=== PATIENT | female | born 2005 | race Caucasian/White ===

== ENCOUNTER 2025-03-22 04:55 | Day surgery (SDC) | payer OTHER, SELFPAY ==
[2025-03-21 23:37] VITALS: BP 130/83
[2025-03-22] VITALS (12 sets, daily range): BP systolic 95–125; BP diastolic 51–79; BMI 23.0; BMI 23.7
[2025-03-22] MEDS: OMNIPAQUE 50 ML PO (00:52)
[2025-03-22] MEDS: NSS 1000 IV ×2 (00:53→06:09)
[2025-03-22] MEDS: ZOFRAN 4 MG IV (00:53)
[2025-03-22 01:05] LABS: Hematocrit 36.2 % (37.0-47.0); Hemoglobin 12.7 g/dL (12.0-16.0); Mean Corp Hgb Conc. 35.1 g/dL (33.0-37.0); Mean Corpuscular Hgb 30.6 pg (27.0-31.0); Mean Corpuscular Volume 87.2 fL (81.0-99.0); Mean Platelet Volume 10.8 fL (7.4-10.4); Platelet Count 267 10^3/uL (130-400); Red Blood Cell Count 4.15 10^6/uL (4.20-5.40); Red Cell Dist. Width 13.4 % (11.5-14.5); White Blood Cell Count 10.1 10^3/uL (4.8-10.8)
[2025-03-22 01:08] LABS: Urine Albumin 1+ (Neg - Trace); Urine Bilirubin Negative (Negative); Urine Character Clear (Clear); Urine Color Yellow; Urine Glucose Negative (Negative); Urine Ketone Negative (Negative); Urine Leukocyte Negative (Negative); Urine Nitrite Negative (Negative); Urine Occult Blood 1+ (Negative); Urine Urobilinogen Negative (Neg - 1+)
[2025-03-22 01:15] LABS: HCG, Serum Qualitative Screen Negative; Urine Squamous Cell >30 /LPF (Few)
[2025-03-22 01:17] LABS: Urine Bacteria Few (Negative); Urine White Cell None Seen /HPF (0-5)
[2025-03-22 01:21] LABS: ALT (SGPT) 10 U/L (0-35); AST (SGOT) 22 U/L (14-36); Albumin 4.7 g/dl (3.5-5.0); Alkaline Phosphatase 39 U/L (38-126); Blood Urea Nitrogen 12 mg/dl (7-17); Calcium 9.4 mg/dl (8.4-10.2); Carbon Dioxide 24 mmol/L (22-30); Chloride 111 mmol/L (98-107); Estimated Creatinine Clearance 81 ml/min; Glucose 77 mg/dl (70-99); Potassium 3.6 mmol/L (3.5-5.1); Sodium 143 mmol/L (135-145); Total Bilirubin 0.7 mg/dl (0.2-1.3); Total Protein 7.2 g/dl (6.3-8.2); eGFR > 60.00
[2025-03-22 01:28] LABS: Lipase 102 U/L (23-300)
--- NOTE | 2025-03-22 02:49 | ED.GENMED ---
History of Present Illness
General
Chief Complaint: Abdominal Pain
Source: patient and family
Time Seen by Provider: 03/22/25 00:18
History of Present Illness
History of Present Illness:
19-year-old female presents with right abdominal pain that started this morning around 9 AM. The patient states she cannot get comfortable. She states the pain is worse whenever she tries to lay or sit. She states the pain still does persist when
she stands. The pain is in the right mid abdomen. Triage note noted but the pain is more in the mid to lower abdomen on the right. She admits to nausea. No vomiting or diarrhea. No fevers. No dysuria. No constipation. No diarrhea. No
melena. No hematochezia. Last period was on the . No abnormal vaginal bleeding. No abnormal vaginal discharge. Patient states she did see the PCP who gave her Zofran and advised that she got worse to come to the house. Mom states she
typically handles pain well but has been in pain all day
Past History
Past History
ED Past Medical History: Asthma
ED Past Surgical History: Tonsilectomy
Phy Exam
Physical Exam
Physical Exam:
CONSTITUTIONAL Patient alert and oriented to person, place and time. Well-appearing. Vital signs reviewed.
HEAD atraumatic, normocephalic.
EYES eyelids normal to inspection, Extraocular muscles intact, Conjunctiva normal, Sclera normal.
NECK normal range of motion, Trachea midline, no jugular venous distention.
RESPIRATORY CHEST No respiratory distress noted, Chest expansion equal, Bilateral breath sounds clear.
CARDIOVASCULAR regular rate and rhythm, Heart sounds normal.
ABDOMEN moderate right lower quadrant abdominal tenderness, mild suprapubic tenderness, Bowel sounds normal. No distention.
BACK normal inspection, no obvious deformities, no CVA tenderness
UPPER EXTREMITY range of motion normal, Motor strength normal, no cyanosis, no edema.
LOWER EXTREMITY range of motion normal, Motor strength normal, no cyanosis, no edema.
NEURO Speech normal, No focal motor deficits, Antonia coma scale 15, Memory normal, Cranial Nerves intact to screening exam.
SKIN skin warm, dry, and normal in color.
Course
Orders/Labs/Results
Orders:
Orders
03/21/25 23:45
Comprehensive Metabolic Panel Urgent
HCG, Serum Qualitative Screen Urgent
Lipase Urgent
Urinalysis Reflex To Culture Urgent
Date Specimen was Collected: 03/21/25
Time Specimen was Collected: 23:47
03/21/25 23:47
Test Result ONCE
03/22/25 00:36
CT Abd/pel W Iv And Oral Contr Urgent
Comment:
Reason For Exam: RLQ abd pain
Iohexol [Omnipaque] See Protocol PO NOW STA
03/22/25 00:37
0.9% Sodium Chloride 1000 ml [Nss] 1,000 ml IV BOLUS
Ondansetron Injectable [Zofran] 4 mg IV NOW STA
03/22/25 00:47
Complete Blood Count/With Diff Urgent
Comment: ADD ON
Urine Microscopic Reflex Cult Urgent
03/22/25 03:34
Add On- LAB Urgent
Tests Added?: differential on CBC
03/22/25 03:51
CefTRIAXone [Rocephin] 2,000 mg IV NOW STA
MetroNIDAZOLE 500 MG/100 ML [Flagyl 500 mg] 100 ml IV NOW
Abnormal Lab Results
03/22/25
00:47
RBC 4.15 L 10^6/uL
(4.20-5.40)
Hct 36.2 L %
(37.0-47.0)
MPV 10.8 H fL
(7.4-10.4)
Chloride 111 H mmol/L
(98-107)
Ur Occult Blood Reflex 1+ A
(Negative)
Urine RBC 3-6 A /HPF
(0-2)
Urine Bacteria (Reflex) Few A
(Negative)
Urine Albumin (Reflex) 1+ A
(Neg - Trace)
03/22/25 00:47
03/22/25 00:47
Vital Signs
Initial and Last Documented VS:
Initial Vital Signs
Temp Pulse Resp BP Pulse Ox
98.6 F 108 16 130/83 100
03/21/25 23:37 03/21/25 23:37 03/21/25 23:37 03/21/25 23:37 03/21/25 23:37
Last Documented Vital Signs
Temp Pulse Resp BP Pulse Ox
98.6 F 77 16 124/58 96
03/21/25 23:37 03/22/25 03:28 03/22/25 03:28 03/22/25 03:28 03/22/25 03:30
MDM/Problems Addressed
Differential Diagnosis Includes:
Appendicitis, ovarian torsion, ovarian cyst, colitis, enteritis, constipation
MDM/Problems Addressed:
acute appendicitis
*Radiology
Radiology exam reviewed: radiology read reviewed
*Pulse Oximetry
Patient hypoxic: no
*Critical Care Note
Total Time (30-74mins, 75-104mins- exclusive of procedures): Not Applicable
Data Reviewed
Source: patient and family
Prescriptions/Medications Considered But Not Given:
Considered Unasyn but patient allergic to penicillin
Patient Management
Discussion with other providers: Dubbing Machine Operator (Dr. Oliver)
Escalation/DeEscalation of care consider admission/obs:
Case discussed with surgery. CT shows appendicitis. Reports childhood allergy to penicillin. Admit
ED Attending Note
-
Portions of this chart may have been created with voice recognition software.� Occasional wrong word or��sound alike� substitutions may have occurred due to the inherent limitations of voice recognition software.
Discharge Plan
Departure
Patient Disposition: Admit
Date of Disposition: 03/22/25
Time of Disposition: 03:35
Admit to: Med/Surg
Presentation/result/management discussed w/ accepting MD/DO: surgery
Discharge Problem:
Acute appendicitis
Referrals:
Juma Perkins, [Family Provider] -
Interventions
Interventions:
*Risk Screen - Suicide Last Done: 03/21/25 23:37
*General Assessment Last Done: 03/22/25 01:23
*Neglect/Abuse Screening Last Done: 03/22/25 01:23
*ED- Fall Risk Assessment Last Done: 03/21/25 23:59
*ED COVID-19 Vaccine History Last Done: 03/21/25 23:59
MS-Hjayqv-Rtkxeordle Assessment Last Done: 03/22/25 01:22
Discharge Date and Time
Print Language: DIVEHI
[2025-03-22 03:53] LABS: % Basophils 0.3 % (0-2); % Eosinophils 0.6 % (0-6); % Immature Granulocytes 0.3 % (0-0.5); % Lymphocytes 14.1 % (20.5-51.1); % Monocytes 9.4 % (1.7-9.3); % Neutrophils 75.3 % (42.2-75.2); Absolute Eosinophils 0.1 10^3/uL (0-0.7); Absolute Lymphocytes 1.4 10^3/uL (1.2-3.4); Absolute Neutrophils 7.7 10^3/uL (1.4-6.5); Nucleated Red Blood Cells % 0.2 %
[2025-03-22] MEDS: FLAGYL 500 MG 100 IV ×2 (04:22→12:29)
[2025-03-22] MEDS: ROCEPHIN 2000 MG IV (04:22)
--- NOTE | 2025-03-22 04:44 | HPS.HSE ---
Addendum entered and electronically signed by Carloz Oliver MD 03/22/25 09:41:
I saw and examined the patient.
The SURVEILLANCE CAMERA TECHNICIAN's note was reviewed and I agree with the note.
Comment:
Patient seen recently by me in the holding area.
History, vitals, labs, imaging reviewed. Patient seen and examined.
19-year-old female with acute nonperforated appendicitis based on history, physical examination, and CT scan. Recommended laparoscopic appendectomy which was discussed in detail with the patient. Risks discussed included but not limited to
bleeding, infection, ureteral injury, bowel or solid organ injury, staple line dehiscence, and anesthetic risk. The patient understood and agreed to proceed.
Original Note:
Family Physician
-
Family Physician: Juma Perkins
Chief Complaint
-
Abdominal pain
History of Present Illness
Patient is a 19 year old female with past medical history significant for anemia and asthma, who presents to the emergency department with a complaint of right abdominal pain. Patient states that pain started around 9 am this morning. She states
that she cannot get comfortable, worse when she tries to lay or sit. Pain is in right lower abdomen. She admits to nausea. Denies vomiting, diarrhea, constipation. Denies fevers. No melena, no hematochezia. Last menses started March 13 and lasted
about 4 days. No abnormal vaginal bleeding or discharge. Patient did see her PCP who gave her Zofran and advised her to come to the hospital if she got worse. Mom states she typically handles pain well but has been in pain all day.
In the emergency department, labs unremarkable, CT Abdomen/Pelvis shows appendicitis.
Patient received NSS 1L Bolus, Zofran 4 mg IV x 1, Ceftriaxone 2 g IV x 1, Metronidazole 400 mg IV x 1.
ED physician, Dr. Loving, discussed case with Dr. Oliver, General Surgery, who is accepting the patient to be admitted to his service for further evaluation and treatment. Patient is NPO for possible OR in the morning.
Medical History
Past Medical History
Past Medical History: Reports Asthma
Additional Past Medical History:
Anemia
Past Surgical History: Reports Tonsilectomy (w/adenoidectomy)
Social History
Tobacco: Non-smoker
Alcohol: None
Drug: None
Personal: Single
Living: With Family
Employment: Employed
Family History
Family History: Not pertinent
Allergies / Home Medications
Allergies reflects when Allergies were last updated in [facility].
Home Medications with original date entered in [facility]
Allergy/Medication List:
Patient Allergies
Allergy/AdvReac Type Severity Reaction Status Date / Time
benzoyl peroxide Allergy Mild Unknown Verified 03/22/25 05:07
Penicillins Allergy Rash Verified 03/21/25 23:37
shellfish derived Allergy Hives Verified 03/22/25 05:07
Home Medications
�Medication �Instructions �Recorded
albuterol sulfate 90 mcg/actuation 2 puff inhalation PRN PRN 15 min 03/22/25
aerosol inhaler before exercise
ferrous sulfate 325 mg (65 mg 325 mg PO DAILY 03/22/25
iron) tablet (iron)
loratadine 10 mg tablet (Claritin) 10 mg PO DAILY 03/22/25
Review of Systems
-
History Source: Patient
A 12 point ROS was completed and negative except as noted: Yes
EENT: Reports No Symptoms
Respiratory: Reports No Symptoms
Cardiac: Reports No Symptoms
Abdomen/GI: Reports Abdominal Pain (right lower quadrant) and Nausea
: Reports No Symptoms
Musculoskeletal: Reports No Symptoms
Skin: Reports No Symptoms
Neurological: Reports No Symptoms
Psych: Reports No Symptoms
Physical Exam
Vital Signs
Vital Signs
Temp Pulse Resp BP Pulse Ox
98.6 F 77 16 124/58 96
03/21/25 23:37 03/22/25 03:28 03/22/25 03:28 03/22/25 03:28 03/22/25 03:30
Physical Exam
General: Well Nourished, Conversant, Pain (moderate pain) and Poor Appetite
HEENT: Moist mucous membranes and PERRLA
Respiratory: Clear and Non Labored Respirations
Cardiac: S1/S2 and Regular Rhythm
GI: Soft, Normal Bowel Sounds and Tender (right lower quadrant)
Musculoskeletal: No Cyanosis and No Edema
Skin: Warm and Dry
Neuro: AO x 3 and No Motor Deficits
Psych: Calm and Intact Judgment/Insight
Laboratory Results
-
03/22/25 00:47
03/22/25 00:47
Laboratory Results
Total Bilirubin 0.7 mg/dl (0.2-1.3) 03/22/25 00:47
AST 22 U/L (14-36) 03/22/25 00:47
ALT 10 U/L (0-35) 03/22/25 00:47
Alkaline Phosphatase 39 U/L (38-126) 03/22/25 00:47
Lipase 102 U/L (23-300) 03/22/25 00:47
Data Reviewed
-
CT Scan: Discussed with Physician
Lab Data: Labs Reviewed by me
Impression/Plan
-
IMPRESSION:
Patient is a 19 year old female with past medical history significant for anemia and asthma, who presents to the emergency department with a complaint of right abdominal pain.
PLAN:
Acute Appendicitis
- CT Abd/Pelvis shows appendicitis.
- Admit to General Surgery, Dr. Oliver
- NPO, IV fluids deferred to surgery
- IV antibiotics: Ceftriaxone 1g IV Q24H and Metronidazole 500 mg IV Q12H. Patient allergic to Penicillin.
- IV pain medication, Toradol. IV antiemetics, Zofran. Patient declined narcotic pain medication on admission.
Anemia
- Continue supplemental iron
Asthma
- Continue Albuterol, PRN
Code status: Full Code
DVT Prophylaxis: SCD's/Ko stockings
[2025-03-22] MEDS: TORADOL 10 MG IV (05:34)
--- NOTE | 2025-03-22 06:17 | PTCARENOTE ---
patient arrived to [address] [place] [address], walked into room accompanied by parents. AAOx3, very pleasant, assessment on going.
--- NOTE | 2025-03-22 09:06 | PTCARENOTE ---
Telephone report given to CLINICAL DATA MANAGERPAUL Sidhu; 2nd set of CHG wipes completed; transport called for patient delivery to OR.
--- NOTE | 2025-03-22 11:01 | W.IMMPOSTOP ---
Surgical Immed Post Op Note
-
Primary Surgeon: Kacy Oliver MD
Assisting Surgeon: none
Pre-op Diagnosis: acute appendicitis
Post-op Diagnosis: same
Procedure Performed: laparoscopic appendectomy
Anesthesia Type: general plus local
Specimen / Cultures: appendix
Estimated Blood Loss: 5 cc
Complications: no immediate
Operative Findings: swollen non-perforated appendix
Will resume diet and send back to med-surg.
Anticipate discharge later today.
--- NOTE | 2025-03-22 12:20 | PTCARENOTE ---
Telephone report received from METALLURGICAL ENGINEERING TECHNICIAN Елена; patient arrived in bed @12:20, 3 lap sites c/d/i surgical glue, VSS, family in room.
--- NOTE | 2025-03-22 13:24 | CM ---
Patient was in OR. Initial assessment completed with mother. Patient lives with her parents in a 3 story home plus basement with B/B on the 2nd floor, 10 steps to enter home. IMPORT SPECIALIST patient was independent in ADL's, is a college student, drives, no
DME or in-home services. Family is support system. No HC-POA. PCP is Dr. Perkins with [facility] on [address] in [place]. Discharge POC: No Needs. .
--- NOTE | 2025-03-22 14:04 | CM ---
Patient has been medically cleared for discharge to home with no additional skilled services. Family will transport home.
--- NOTE | 2025-03-22 14:19 | W.DS.TRANS ---
DC Summary - [employer]
-
Discharge Instructions:
Discharge Diagnosis/Procedures Appendicitis status post appendectomy
Diet Regular,As tolerated
Activity No strenuous activity
Driving Restrictions Wait until comfortable twisting/off narcotics
Bathing Restrictions OK to Shower
Wound Care Allow the glue to flake off your incisions on
its own over the next 2-3 weeks. Avoid scrubbing
or picking off. Ok to shower but do not
submerge in tubs or pools during this time.
Instructions:
Stand-Alone Forms:
Changes to Home Medications: No
Discharge Medications:
DC Medications w/original date entered in [facility]
acetaminophen 325 mg tablet 650 mg (2 x 325 mg) PO Q4HPRN PRN mild pain #1 tab 03/22/25
albuterol sulfate 90 mcg/actuation aerosol inhaler 2 puff inhalation PRN PRN 15 min before exercise 03/22/25
ferrous sulfate 325 mg (65 mg iron) tablet (iron) 325 mg PO DAILY 03/22/25
ibuprofen 200 mg tablet 400 - 600 mg (2 - 3 x 200 mg) PO Q6HPRN PRN moderate pain #1 tab 03/22/25
loratadine 10 mg tablet (Claritin) 10 mg PO DAILY 03/22/25
oxycodone 5 mg tablet 5 mg PO Q4HPRN PRN breakthrough/severe pain #5 tabs 03/22/25
Home Medication Changes
Pending Results: No
== END 2025-03-22 15:44 | disposition home or self-care (01) ==
LOC: PACU 04:55
PROVIDERS: Student in an Organized Health Care Education/Training Program; ATTENDING PHYSICIAN Surgery; EMERGENCY PHYSICIAN Emergency Medicine; FAMILY PHYSICIAN Pediatrics
DX: K35.80 Unspecified acute appendicitis (principal)
CPT/HCPCS: 44970; 88304; 74177; 80053; 81003; 81015; 83690; 84703; 85025; 93005; 96361; 96374; 96375; 99285; Q9967